=== PATIENT | male | born 1955 | race Caucasian/White ===

== ENCOUNTER 2022-11-27 10:58 | Outpatient (CLI) | payer MEDICARE, BC, SELFPAY | END 2022-11-27 10:59 | disposition home or self-care (01) | PROVIDERS: PCP Family Medicine; Visit Provider Family Medicine | DX: Z13.6 Encounter for screening for cardiovascular disorders (principal); Z12.5 Encounter for screening for malignant neoplasm of prostate | CPT/HCPCS: 80048; 80061; 84153 ==

== ENCOUNTER 2023-05-07 11:36 | Outpatient (CLI) | payer MEDICARE, BC, SELFPAY | END 2023-05-07 11:37 | disposition home or self-care (01) | PROVIDERS: PCP Family Medicine; Visit Provider Family Medicine | DX: E78.2 Mixed hyperlipidemia (principal); I10 Essential (primary) hypertension | CPT/HCPCS: 80048; 80061 ==

== ENCOUNTER 2024-06-30 14:34 | Outpatient (CLI) | payer MEDICARE, BC, SELFPAY | END 2024-06-30 14:35 | disposition home or self-care (01) | PROVIDERS: PCP Family Medicine; Visit Provider Family Medicine | DX: E78.2 Mixed hyperlipidemia (principal); I10 Essential (primary) hypertension; Z12.5 Encounter for screening for malignant neoplasm of prostate | CPT/HCPCS: 80048; 80061; 85025; G0103 ==